=== PATIENT | female | born 2000 | race Two or more races ===

== ENCOUNTER 2021-06-22 09:11 | Emergency (ER) | payer OTHER ==
[~2021-06-22] VITALS: Ht 157.5 cm; Wt 62.6 kg
[2021-06-22] MEDS ORDERED: PRENA1 CHEW TA1.4 MG (09:27)
[2021-06-22] MEDS ORDERED: ZITHROMAX200 MG PO (12:20)
== END 2021-06-22 12:58 | disposition home or self-care (01) ==
LOC: ER 09:11
DX: O98.812 Other maternal infectious and parasitic diseases complicating pregnancy, second trimester (principal); Z3A.25 25 weeks gestation of pregnancy; N39.0 Urinary tract infection, site not specified; B95.1 Streptococcus, group B, as the cause of diseases classified elsewhere; R07.89 Other chest pain; A49.3 Mycoplasma infection, unspecified site

== ENCOUNTER 2021-07-04 11:11 | Inpatient (IN) | payer OTHER ==
[~2021-07-04] VITALS: Ht 157.5 cm; Wt 62.6 kg
[~2021-07-04 11:11] MED LIST: PRENA1 CHEW TA1.4 MG; ZITHROMAX200 MG PO
[2021-07-04] MEDS ORDERED: ACETAMINOPHEN500 M2 PO (12:20)
[2021-07-09] MEDS ORDERED: AMPICILLIN TRI500 MG PO (16:10)
== END 2021-07-09 16:18 | disposition home or self-care (01) | DRG 831 ==
LOC: OBS/DEL 11:11 → LDR 07-05 13:28
PROVIDERS: ADMIT Specialist; ATTEND Specialist
PROC: 8E0ZXY6 Isolation (ICD-10-PCS; principal; 2021-07-05)
PROC: 4A1HXCZ Monitoring of Products of Conception, Cardiac Rate, External Approach (ICD-10-PCS; 2021-07-05)
PROC: 4A033R1 Measurement of Arterial Saturation, Peripheral, Percutaneous Approach (ICD-10-PCS; 2021-07-05)
DX: O98.512 Other viral diseases complicating pregnancy, second trimester (principal); U07.1 COVID-19; O23.32 Infections of other parts of urinary tract in pregnancy, second trimester; N39.0 Urinary tract infection, site not specified; Z3A.27 27 weeks gestation of pregnancy; B95.1 Streptococcus, group B, as the cause of diseases classified elsewhere